=== PATIENT | male | born 1985 | race Caucasian/White ===

== ENCOUNTER 2023-12-12 06:06 | Emergency (ER) | payer BC ==
[2023-12-12 06:21] VITALS: TEMP 97.7
[2023-12-12] MEDS: ORPHENADRINE 60MG/2ML IM ONE (06:32)
[2023-12-12] MEDS: ketOROlac 30MG VIAL (30MG/ML) IVP ONE (06:33)
[2023-12-12] MEDS: 0.9%NACL 1000ML 1,000 ML IV ONE (06:33)
[2023-12-12 06:38] LABS: BASOPHILS # (AUTO) 0.04 K/uL (0.00-0.20); BASOPHILS % (AUTO) 0.3 % (0.0-5.0); EOSINOPHILS # (AUTO) 0.31 K/uL (0.00-0.70); EOSINOPHILS % (AUTO) 2.7 % (0.0-8.0); HEMATOCRIT 40.7 % (42-54); IMMATURE GRANULOCYTE ABSOLUTE 0.04 K/uL (0-1); LYMPHOCYTES # (AUTO) 1.6 K/uL (1.0-4.8); MEAN CORPUSCULAR HEMOGLOBIN 30.5 pg (27.0-33.0); MEAN CORPUSCULAR HGB CONC 33.2 g/dL (32.0-36.0); MEAN CORPUSCULAR VOLUME 91.9 fL (79-99); MONOCYTES % (AUTO) 8.5 % (3.0-13.0); NEUTROPHILS # (AUTO) 8.5 K/uL (1.8-7.7); NEUTROPHILS % (AUTO) 74.2 % (40.0-77.0); PLATELET COUNT (AUTO) 319 K/uL (130-400); RED BLOOD CELL COUNT(AUTO) 4.43 MIL/uL (4.50-6.20); RED CELL DISTRIBUTION WIDTH 12.3 % (11.0-15.5); WHITE BLOOD COUNT (AUTO) 11.4 K/uL (4.8-10.8)
[2023-12-12 06:56] LABS: BILIRUBIN,TOTAL 0.5 mg/dL (0.2-1.0); CREATININE 1.4 mg/dL (0.5-1.3); MAGNESIUM 2.2 mg/dL (1.80-2.40); POTASSIUM 3.8 mmol/L (3.5-5.1); TOTAL PROTEIN, SERUM 7.9 g/dL (6.0-8.3)
[2023-12-12] MEDS: hydroMORPHone 1 MG INJ IVP ONE (08:47)
[2023-12-12] MEDS: GABAPENTIN 300 MG CAPSULE PO SCH (09:03)
[2023-12-12] MEDS: hydroMORPHone 2 MG VIAL (2MG/ML) IVP ONE (10:30)
[2023-12-12] MEDS: ZOSYN 3.375GM +NS 50ML IV ONE (10:55)
[2023-12-12] MEDS: teTANUS/diphthERIA TOXOID [ADULT] 0.5 ML VIAL IM ONE (11:05)
[2023-12-12] MEDS ORDERED: IOHEXOL-350 75 ML VIAL IV ONE (12:34)
[2023-12-12] MEDS: FENTanyl CITRate PF 50 MCG/1 ML 2ML VIAL IVP ONE ×2 (14:20→19:33)
[2023-12-12 17:51] VITALS: BP 144/98; PULSE 100; RESP 14; O2SAT 100
[2023-12-12] MEDS: acetaMINOPHEN 500 MG TABLET PO ONE (19:33)
== END 2023-12-12 19:35 | disposition short-term general hospital (02) ==
LOC: EDH 06:06
DX: S61.451A Open bite of right hand, initial encounter (principal); R50.9 Fever, unspecified; W54.0XXA Bitten by dog, initial encounter; Y93.89 Activity, other specified; Y92.89 Other specified places as the place of occurrence of the external cause; Y99.8 Other external cause status
CPT/HCPCS: 99285; 73201; 96365; 96375; 96366; 82550 ×2; 83735; 80053; 85025; 85651; 36415; 90714; 73130; 96372; 96376; 90471; J3010 ×2; J1171; J7030; J1885; J2543; Q9967; J2360